=== PATIENT | male | born 1955 | race Caucasian/White ===

== ENCOUNTER 2019-11-21 22:01 | Emergency (ER) | payer OTHER ==
[2019-11-21] MEDS ORDERED: diphenhydrAMINE 50 MG/ML VIAL ONE (22:11)
[2019-11-21] MEDS ORDERED: methylPREDNISolone Sod Succ/PF 125 MG/2 ML VIAL ONE (22:11)
[2019-11-21] MEDS ORDERED: EPINEPHrine 1 MG/ML AMP ONE ×2 (22:15→22:22)
[2019-11-21] MEDS ORDERED: EPINEPHrine 1 MG/10 ML Abboject SYRINGE ONE (22:17)
== END 2019-11-22 05:50 | disposition home or self-care (01) ==
LOC: BURERS 22:01
DX: T63.2X1A Toxic effect of venom of scorpion, accidental (unintentional), initial encounter (principal); T78.2XXA Anaphylactic shock, unspecified, initial encounter; I10 Essential (primary) hypertension; R73.03 Prediabetes; Z79.899 Other long term (current) drug therapy
CPT/HCPCS: 96372; 96374; 96375; J0171; J1200; J2930